=== PATIENT | female | born 1990 | race Two or more races ===

== ENCOUNTER 2024-09-30 05:52 | Observation (INO) | payer MEDICAID, SELFPAY ==
[2024-09-30 06:13] VITALS: BMI 27.8
[2024-09-30 06:15] VITALS: TEMP 36.7
== END 2024-09-30 07:13 | disposition home or self-care (01) ==
PROVIDERS: Admitting Provider Obstetrics & Gynecology; Visit Provider Obstetrics & Gynecology
DX: O47.1 False labor at or after 37 completed weeks of gestation (principal); Z3A.39 39 weeks gestation of pregnancy
CPT/HCPCS: 59025; G0378